=== PATIENT | female | born 1960 | race Caucasian/White ===

== ENCOUNTER → 2018-06-16 | Outpatient (REF) | payer OTHER ==
[~2018-06-16] MED LIST: AMOX-559 PO; AZIT-1 PO; MULT-820 PO; NALT1TAB PO; NAPR220C12 PO
== END ==
PROVIDERS: ATTEND Nurse Practitioner Family
DX: R19.7 Diarrhea, unspecified (principal)
CPT/HCPCS: 82274; 83630; 87045; 87493